=== PATIENT | female | born 1940 | race Caucasian/White ===

== ENCOUNTER 2017-12-08 23:00 | Emergency (ER) | payer MEDICARE ==
--- NOTE | 2017-12-08 23:55 | RAD ---
PORTABLE CHEST: 12/08/17 HISTORY: Fall at [facility]. Lung ramos are clear of infiltrate. Heart size is mildly prominent. Pacemaker leads are noted. Granu rachna are seen in the lungs. No change from prior exam. IMPRESSION: No acute abnormality. POS: [facility]
[2017-12-09 00:01] LABS: INR-International Normal Ratio 1.1; Prothrombin Time 14.5 SEC (12.0-14.7)
[2017-12-09 00:11] LABS: Band 5 % (5-11); Eosinophils 7 % (0-10); Hemoglobin 13.4 g/dL (12.0-16.0); Lymphocytes 21 % (21-51); MDiff Complete? YES; Mean Corpuscular Hemoglobin 30.2 pg (27.0-31.0); Mean Corpuscular Volume 94.3 fl (81.0-99.0); Mean Platelet Volume 7.3 fL (7.4-10.4); Monocytes 11 % (0-10); Neutrophil 56 % (42-75); Platelet Count 220 thou/uL (130-400); RBC Distribution Width 13.8 % (11.5-14.5); Red Blood Cell (RBC) Count 4.43 mill/uL (4.20-5.40); White Blood Cell (WBC) Count 4.2 thou/uL (4.8-10.8)
[2017-12-09 00:17] LABS: ALT (SGPT) 11 U/L (8-55); AST (SGOT) 16 U/L (5-34); Albumin 3.8 g/dL (3.4-4.8); Alkaline Phosphatase 43 U/L (40-150); Anion Gap 18 mmol/L (10-20); BUN (Urea Nitrogen) 45 mg/dL (9.8-20.1); Bilirubin, Total 0.9 mg/dL (0.2-1.2); Calc. Creatinine Clearance 0 mL/min (70-130); Calcium 10.6 mg/dL (7.8-10.44); Carbon Dioxide 22 mmol/L (23-31); Chloride 111 mmol/L (98-107); Estimated GFR-MDRD 40; Globulin 3.1 g/dL (2.4-3.5); Glucose 118 mg/dL (83-110); Lipase 17 U/L (8-78); Potassium 4.5 mmol/L (3.5-5.1); Protein, Total 6.9 g/dL (6.0-8.3); Sodium 146 mmol/L (136-145)
[2017-12-09 02:12] LABS: Bilirubin Small (Negative); Blood, Urine Negative (Negative); Clarity CLEAR (Clear); Glucose, Urine (Dipstick) Negative (Negative); Leukocyte Negative (Negative); Nitrite Negative (Negative); Protein, Urine (Dipstick) Negative (Neg-Trace); Specific Gravity, Urine 1.022 (1.002-1.036); pH, Urine 5.5 (5.0-9.0)
--- NOTE | 2017-12-09 08:25 | CT ---
PRELIMINARY REPORT/[facility]/EMERGENCY AFTER HOURS PROCEDURE: EXAM: CT Abdomen and Pelvis Without Intravenous Contrast CLINICAL HISTORY: 77 years old, female; Injury or trauma; Fall; Initial encounter; Abrasion; Patient HX: F 77 presents to ed post fall at her [facility], [place] reports that pt keeps trying to escape her room and today when she got out of bed she fell and landed on the ground. On ems arrival pt was found down and is somewhat confus ed at baseline. HX of fibromyalgia and chronic pain; Additional info: *pt allergic to iv contrast TECHNIQUE: Axial computed tomography images of the abdomen and pelvis without intravenous contrast. Coronal and sagittal reformatted images were created and reviewed. COMPARISON: No relevant prior studies available. FINDINGS: Lower thorax: There is a small hiatal hernia. There is minimal bibasilar atelectatic change or scarri ng. ABDOMEN: Liver: Unremarkable. Gallbladder and bile ducts: There are postoperative changes of cholecystectomy. No ductal dilation. Pancreas: Unremarkable. No ductal dilation. Spleen: There is a calcified splenic granuloma. Adrenals: Unremarkable. No mass. Kidneys and ureters: There is left renal cortical scarring. No obstructing stones. No hydronephrosis. Stomach and bowel: Unremarkable. No obstruction. No mucosal thickening. Appendix: The appendix is unremarkable and seen best on axial image 45 of series 2. PELVIS: Bladder: Unremarkable. No stones. Reproductive: There are postoperative changes of hysterectomy. ABDOMEN and PELVIS: Intraperitoneal space: Unremarkable. No free air. No significant fluid collection. Bones/joints: There is diffuse osteopenia and there are degenerative changes of the spine. There may be mild S. type scoliosis. No acute fracture. No dislocation. Soft tissues: There is a small fat filled umbilical hernia without signs of incarceration. Vasculature: There is aorto biiliac stents. No abdominal aortic aneurysm. Lymph nodes: Unremarkable. No enlarged lymph nodes. IMPRESSION: 1. There is a small hiatal hernia. 2. No acute traumatic CT pathology. Thank you for allowing us to participate in the care of your patient. Dictated and Authenticated by: Sergio Cedillo MD 12/09/2017 1:23 AM Central Time ([place] & [place]) FINAL REPORT EMERGENCY AFTER HOURS CT ABDOMEN AND PELVIS WITHOUT CONTRAST: Date: 12/09/17 FINDINGS/IMPRESSION: I agree with the preliminary report given by Dr. Sergio Cedillo of [facility]. POS: [facility]
--- NOTE | 2017-12-11 14:39 | EKG ---
Test Reason : Blood Pressure : / mmHG Vent. Rate : 162 BPM Atrial Rate : 162 BPM P-R Int : 066 ms QRS Dur : 004 ms QT Int : 238 ms P-R-T Axes : -76 000 -68 degrees QTc Int : 390 ms Undetermined rhythm Indeterminate axis Pulmonary disease pattern Nonspecific T wave abnormality No STEMI Abnormal ECG Confirmed by KASIA Wall, BRYAN ([id number]), social media editor ERNESTINA HENDRICKS ([id number]) on 12/11/2017 2:39:06 PM Referred By: Confirmed By:BRYAN PEDROZA M.D.
== END 2017-12-09 04:35 ==
LOC: ERS 23:00
DX: S30.1XXA Contusion of abdominal wall, initial encounter (principal); M10.9 Gout, unspecified; J42 Unspecified chronic bronchitis; F03.90 Unspecified dementia, unspecified severity, without behavioral disturbance, psychotic disturbance, mood disturbance, and anxiety; M19.90 Unspecified osteoarthritis, unspecified site; I71.4 Abdominal aortic aneurysm, without rupture; Z79.891 Long term (current) use of opiate analgesic; Z79.899 Other long term (current) drug therapy; W06.XXXA Fall from bed, initial encounter
CPT/HCPCS: 36415; 51701; 71045; 74176; 80053; 81003; 83690; 85025; 85610; 93005; A4353